=== PATIENT | male | born 1995 | race Caucasian/White ===

== ENCOUNTER → 2020-09-07 | Outpatient (CLI) | payer OTHER | LOC: EXRD 09:26 | DX: R10.11 Right upper quadrant pain (principal) | CPT/HCPCS: 76705 ==

== ENCOUNTER → 2020-10-12 | Outpatient (CLI) | payer OTHER | LOC: NM 08:59 | DX: R10.11 Right upper quadrant pain (principal) | CPT/HCPCS: 78227; A9537; J2805 ==